=== PATIENT | male | born 1960 | race Caucasian/White ===

== ENCOUNTER 2021-11-14 15:14 | Inpatient (IN) ==
[2021-11-14] MEDS ORDERED: Ipratropium/Albuterol Neb 3 ML IH PRN (16:49)
[2021-11-14] MEDS: *HR* OxyCODONE Immed Rel 5 MG TABLET PO PRN (19:57)
[2021-11-14] MEDS: Levalbuterol Neb 1.25 MG/3 ML IH SCH (20:49)
[2021-11-15] MEDS: Acetaminophen 325 MG TABLET PO PRN ×2 (01:25→08:43)
[2021-11-15] MEDS: Levalbuterol Neb 1.25 MG/3 ML IH SCH (04:02)
[2021-11-15] MEDS: *HR* OxyCODONE Immed Rel 5 MG TABLET PO PRN ×4 (04:02→18:34)
[2021-11-15] MEDS: *HR* Enoxaparin 40 MG/0.4 ML SYRINGE SQ SCH (06:06)
[2021-11-15 06:53] LABS: Basophils % 0.3 %; Eosinophils # 0.2 K/mcL (0.0-0.6); Eosinophils % 2.5 %; Hematocrit 26.5 % (37.5-50.1); Hemoglobin 8.9 g/dL (12.9-16.9); Immature Granulocytes % 0.5 % (0-4); Lymphocytes # 1.1 K/mcL (0.6-4.6); Lymphocytes % 19.2 %; Mean Corpuscular HGB Conc 33.6 g/dL (31.6-35.5); Mean Corpuscular Hemoglobin 30.7 pg (28.0-33.3); Mean Corpuscular Volume 91.4 fL (83.0-100.0); Mean Platelet Volume 8.1 fL (9.4-12.4); Monocytes # 0.7 K/mcL (0.0-1.3); Monocytes % 11.1 %; Neutrophils # 3.9 K/mcL (1.6-8.9); Platelet Count 319 K/mcL (140-400); Red Cell Distribution Width 13.1 % (11.5-14.5); Segmented Neutrophils % 66.4 %; White Blood Count 5.9 K/mcL (4.3-11.1)
[2021-11-15 07:10] LABS: BUN/Creatinine Ratio 16 (6-26); Blood Urea Nitrogen 11 mg/dL (8-23); Calcium 9.4 mg/dL (8.6-10.3); Carbon Dioxide 31 mEq/L (23-29); Chloride 97 mEq/L (98-107); Glucose 104 mg/dL (70-105); Osmolality,Calculated 276 (280-300); Sodium 133 mEq/L (136-145); eGFR For African Americans > 60 (> 60); eGFR For Non-African Americans > 60 (> 60)
[2021-11-15] MEDS: Aspirin 325 MG TABLET PO SCH (08:43)
[2021-11-15] MEDS: Magnesium Oxide 400 MG TABLET PO SCH (08:43)
[2021-11-15] MEDS: amLODIPine 5 MG TABLET PO SCH (08:43)
[2021-11-15] MEDS: Thiamine (B-1) 100 MG TABLET PO SCH (08:43)
[2021-11-15] MEDS: Folic Acid 1 MG TABLET PO SCH (08:43)
[2021-11-16] MEDS: *HR* OxyCODONE Immed Rel 5 MG TABLET PO PRN ×5 (00:32→20:11)
[2021-11-16] MEDS: *HR* Enoxaparin 40 MG/0.4 ML SYRINGE SQ SCH (05:51)
[2021-11-16] MEDS: Thiamine (B-1) 100 MG TABLET PO SCH (08:32)
[2021-11-16] MEDS: Aspirin 325 MG TABLET PO SCH (08:32)
[2021-11-16] MEDS: amLODIPine 5 MG TABLET PO SCH (08:32)
[2021-11-16] MEDS: Folic Acid 1 MG TABLET PO SCH (08:33)
[2021-11-16] MEDS: Magnesium Oxide 400 MG TABLET PO SCH (08:33)
[2021-11-17] MEDS: *HR* OxyCODONE Immed Rel 5 MG TABLET PO PRN ×5 (00:19→20:09)
[2021-11-17] MEDS: *HR* Enoxaparin 40 MG/0.4 ML SYRINGE SQ SCH (07:01)
[2021-11-17 08:03] LABS: Hematocrit 29.6 % (37.5-50.1); Hemoglobin 9.8 g/dL (12.9-16.9); Mean Corpuscular HGB Conc 33.1 g/dL (31.6-35.5); Mean Corpuscular Hemoglobin 30.1 pg (28.0-33.3); Mean Corpuscular Volume 90.8 fL (83.0-100.0); Mean Platelet Volume 8.2 fL (9.4-12.4); Platelet Count 385 K/mcL (140-400); Red Blood Count 3.26 M/mcL (4.19-5.50); Red Cell Distribution Width 13.1 % (11.5-14.5); White Blood Count 5.8 K/mcL (4.3-11.1)
[2021-11-17 08:22] LABS: BUN/Creatinine Ratio 12 (6-26); Blood Urea Nitrogen 8 mg/dL (8-23); Calcium 9.7 mg/dL (8.6-10.3); Carbon Dioxide 29 mEq/L (23-29); Chloride 97 mEq/L (98-107); Glucose 105 mg/dL (70-105); Osmolality,Calculated 273 (280-300); Potassium 3.7 mEq/L (3.5-5.1); Sodium 132 mEq/L (136-145); eGFR For African Americans > 60 (> 60); eGFR For Non-African Americans > 60 (> 60)
[2021-11-17] MEDS: Acetaminophen 325 MG TABLET PO PRN (08:33)
[2021-11-17] MEDS: Folic Acid 1 MG TABLET PO SCH (08:33)
[2021-11-17] MEDS: Thiamine (B-1) 100 MG TABLET PO SCH (08:33)
[2021-11-17] MEDS: amLODIPine 5 MG TABLET PO SCH (08:33)
[2021-11-17] MEDS: Aspirin 325 MG TABLET PO SCH (08:33)
[2021-11-17] MEDS: Magnesium Oxide 400 MG TABLET PO SCH (08:34)
[2021-11-17] MEDS ORDERED: Isovue-370 500 ML BOTTLE IVP ONE (08:51)
[2021-11-17 11:59] LABS: Ferritin 226 ng/mL (20-250)
[2021-11-17 14:22] LABS: C-Reactive Protein 12 mg/L (Less than 10)
[2021-11-17] MEDS: Melatonin 3 MG TABLET PO PRN (20:08)
[2021-11-17] MEDS: traZODone 50 MG TABLET PO PRN (20:09)
[2021-11-18] MEDS: *HR* OxyCODONE Immed Rel 5 MG TABLET PO PRN ×4 (06:32→21:48)
[2021-11-18] MEDS: *HR* Enoxaparin 40 MG/0.4 ML SYRINGE SQ SCH (06:32)
[2021-11-18] MEDS: amLODIPine 5 MG TABLET PO SCH (09:06)
[2021-11-18] MEDS: Thiamine (B-1) 100 MG TABLET PO SCH (09:06)
[2021-11-18] MEDS: Magnesium Oxide 400 MG TABLET PO SCH (09:06)
[2021-11-18] MEDS: Aspirin 325 MG TABLET PO SCH (09:06)
[2021-11-18] MEDS: Folic Acid 1 MG TABLET PO SCH (09:06)
[2021-11-18] MEDS: traZODone 50 MG TABLET PO PRN (21:48)
[2021-11-18] MEDS: Melatonin 3 MG TABLET PO PRN (21:48)
[2021-11-19 05:21] LABS: Basophils % 0.4 %; Eosinophils # 0.2 K/mcL (0.0-0.6); Eosinophils % 3.3 %; Hematocrit 29.3 % (37.5-50.1); Hemoglobin 9.8 g/dL (12.9-16.9); Immature Granulocytes % 0.3 % (0-4); Lymphocytes # 1.2 K/mcL (0.6-4.6); Lymphocytes % 17.7 %; Mean Corpuscular HGB Conc 33.4 g/dL (31.6-35.5); Mean Corpuscular Volume 89.6 fL (83.0-100.0); Mean Platelet Volume 8.3 fL (9.4-12.4); Monocytes # 0.7 K/mcL (0.0-1.3); Monocytes % 10.4 %; Neutrophils # 4.6 K/mcL (1.6-8.9); Platelet Count 415 K/mcL (140-400); Red Blood Count 3.27 M/mcL (4.19-5.50); Segmented Neutrophils % 67.9 %; White Blood Count 6.7 K/mcL (4.3-11.1)
[2021-11-19] MEDS: *HR* OxyCODONE Immed Rel 5 MG TABLET PO PRN ×5 (05:25→22:07)
[2021-11-19] MEDS: *HR* Enoxaparin 40 MG/0.4 ML SYRINGE SQ SCH (05:25)
[2021-11-19 05:33] LABS: BUN/Creatinine Ratio 13 (6-26); Blood Urea Nitrogen 9 mg/dL (8-23); Calcium 9.7 mg/dL (8.6-10.3); Carbon Dioxide 27 mEq/L (23-29); Chloride 99 mEq/L (98-107); Glucose 117 mg/dL (70-105); Osmolality,Calculated 276 (280-300); Potassium 3.8 mEq/L (3.5-5.1); Sodium 133 mEq/L (136-145); eGFR For African Americans > 60 (> 60); eGFR For Non-African Americans > 60 (> 60)
[2021-11-19] MEDS: Folic Acid 1 MG TABLET PO SCH (08:36)
[2021-11-19] MEDS: Thiamine (B-1) 100 MG TABLET PO SCH (08:36)
[2021-11-19] MEDS: Magnesium Oxide 400 MG TABLET PO SCH (08:37)
[2021-11-19] MEDS: amLODIPine 5 MG TABLET PO SCH (08:37)
[2021-11-19] MEDS: Aspirin 325 MG TABLET PO SCH (08:37)
[2021-11-19] MEDS: Fluticasone Propionate Nasal 50 MCG/SPRAY BOTTLE NS SCH (14:46)
[2021-11-19] MEDS: Melatonin 3 MG TABLET PO PRN (22:07)
[2021-11-19] MEDS: traZODone 50 MG TABLET PO PRN (22:07)
[2021-11-20] MEDS: *HR* Enoxaparin 40 MG/0.4 ML SYRINGE SQ SCH (05:16)
[2021-11-20] MEDS: *HR* OxyCODONE Immed Rel 5 MG TABLET PO PRN ×5 (05:16→21:32)
[2021-11-20] MEDS: Folic Acid 1 MG TABLET PO SCH (08:53)
[2021-11-20] MEDS: amLODIPine 5 MG TABLET PO SCH (08:53)
[2021-11-20] MEDS: Magnesium Oxide 400 MG TABLET PO SCH (08:53)
[2021-11-20] MEDS: Thiamine (B-1) 100 MG TABLET PO SCH (08:53)
[2021-11-20] MEDS: Aspirin 325 MG TABLET PO SCH (08:53)
[2021-11-20] MEDS: Fluticasone Propionate Nasal 50 MCG/SPRAY BOTTLE NS SCH (17:37)
[2021-11-20] MEDS: Melatonin 3 MG TABLET PO PRN (21:32)
[2021-11-20] MEDS: traZODone 50 MG TABLET PO PRN (21:32)
[2021-11-21] MEDS: *HR* Enoxaparin 40 MG/0.4 ML SYRINGE SQ SCH (05:42)
[2021-11-21] MEDS: *HR* OxyCODONE Immed Rel 5 MG TABLET PO PRN ×5 (05:42→22:49)
[2021-11-21] MEDS: Thiamine (B-1) 100 MG TABLET PO SCH (09:24)
[2021-11-21] MEDS: Magnesium Oxide 400 MG TABLET PO SCH (09:24)
[2021-11-21] MEDS: amLODIPine 5 MG TABLET PO SCH (09:24)
[2021-11-21] MEDS: Aspirin 325 MG TABLET PO SCH (09:24)
[2021-11-21] MEDS: Folic Acid 1 MG TABLET PO SCH (09:24)
[2021-11-21] MEDS: Fluticasone Propionate Nasal 50 MCG/SPRAY BOTTLE NS SCH (09:24)
[2021-11-21] MEDS: Melatonin 3 MG TABLET PO PRN (22:49)
[2021-11-21] MEDS: traZODone 50 MG TABLET PO PRN (22:49)
[2021-11-22] MEDS: *HR* OxyCODONE Immed Rel 5 MG TABLET PO PRN ×5 (05:34→22:30)
[2021-11-22] MEDS: *HR* Enoxaparin 40 MG/0.4 ML SYRINGE SQ SCH (05:34)
[2021-11-22 07:20] LABS: Hematocrit 29.4 % (37.5-50.1); Hemoglobin 9.9 g/dL (12.9-16.9); Mean Corpuscular HGB Conc 33.7 g/dL (31.6-35.5); Mean Corpuscular Hemoglobin 30.4 pg (28.0-33.3); Mean Corpuscular Volume 90.2 fL (83.0-100.0); Mean Platelet Volume 8.3 fL (9.4-12.4); Platelet Count 420 K/mcL (140-400); Red Blood Count 3.26 M/mcL (4.19-5.50); Red Cell Distribution Width 12.8 % (11.5-14.5); White Blood Count 6.4 K/mcL (4.3-11.1)
[2021-11-22 07:54] LABS: BUN/Creatinine Ratio 13 (6-26); Blood Urea Nitrogen 9 mg/dL (8-23); Calcium 9.4 mg/dL (8.6-10.3); Carbon Dioxide 29 mEq/L (23-29); Chloride 98 mEq/L (98-107); Glucose 107 mg/dL (70-105); Magnesium 1.8 mg/dL (1.6-2.6); Osmolality,Calculated 275 (280-300); Potassium 3.8 mEq/L (3.5-5.1); Sodium 133 mEq/L (136-145); eGFR For African Americans > 60 (> 60); eGFR For Non-African Americans > 60 (> 60)
[2021-11-22] MEDS: Folic Acid 1 MG TABLET PO SCH (08:13)
[2021-11-22] MEDS: Thiamine (B-1) 100 MG TABLET PO SCH (08:13)
[2021-11-22] MEDS: amLODIPine 5 MG TABLET PO SCH (08:13)
[2021-11-22] MEDS: Aspirin 325 MG TABLET PO SCH (08:13)
[2021-11-22] MEDS: Magnesium Oxide 400 MG TABLET PO SCH (08:13)
[2021-11-22] MEDS: Fluticasone Propionate Nasal 50 MCG/SPRAY BOTTLE NS SCH (08:14)
[2021-11-22] MEDS: traZODone 50 MG TABLET PO PRN (22:37)
[2021-11-22] MEDS: Melatonin 3 MG TABLET PO PRN (22:37)
[2021-11-23] MEDS: *HR* OxyCODONE Immed Rel 5 MG TABLET PO PRN ×5 (05:07→22:25)
[2021-11-23] MEDS: *HR* Enoxaparin 40 MG/0.4 ML SYRINGE SQ SCH (05:07)
[2021-11-23] MEDS: Aspirin 325 MG TABLET PO SCH (08:39)
[2021-11-23] MEDS: Fluticasone Propionate Nasal 50 MCG/SPRAY BOTTLE NS SCH (08:39)
[2021-11-23] MEDS: Thiamine (B-1) 100 MG TABLET PO SCH (08:39)
[2021-11-23] MEDS: Folic Acid 1 MG TABLET PO SCH (08:40)
[2021-11-23] MEDS: amLODIPine 5 MG TABLET PO SCH (08:40)
[2021-11-23] MEDS: Magnesium Oxide 400 MG TABLET PO SCH (08:40)
[2021-11-23] MEDS ORDERED: polyethylene glycoL 3350 17 GM POWD.PACK PO PRN (11:29)
[2021-11-23] MEDS: traZODone 50 MG TABLET PO PRN (22:25)
[2021-11-23] MEDS: Melatonin 3 MG TABLET PO PRN (22:25)
[2021-11-24] MEDS: *HR* OxyCODONE Immed Rel 5 MG TABLET PO PRN ×5 (03:45→21:16)
[2021-11-24] MEDS: *HR* Enoxaparin 40 MG/0.4 ML SYRINGE SQ SCH (05:05)
[2021-11-24] MEDS: Aspirin 325 MG TABLET PO SCH (08:32)
[2021-11-24] MEDS: Folic Acid 1 MG TABLET PO SCH (08:32)
[2021-11-24] MEDS: Magnesium Oxide 400 MG TABLET PO SCH (08:32)
[2021-11-24] MEDS: Thiamine (B-1) 100 MG TABLET PO SCH (08:32)
[2021-11-24] MEDS: amLODIPine 5 MG TABLET PO SCH (08:32)
[2021-11-24] MEDS: Fluticasone Propionate Nasal 50 MCG/SPRAY BOTTLE NS SCH (08:34)
[2021-11-24] MEDS: Melatonin 3 MG TABLET PO PRN (21:15)
[2021-11-24] MEDS: traZODone 50 MG TABLET PO PRN (21:16)
[2021-11-25 05:24] LABS: Basophils % 0.5 %; Eosinophils # 0.2 K/mcL (0.0-0.6); Eosinophils % 3.4 %; Hematocrit 29.6 % (37.5-50.1); Hemoglobin 9.9 g/dL (12.9-16.9); Immature Granulocytes % 0.5 % (0-4); Lymphocytes # 1.5 K/mcL (0.6-4.6); Lymphocytes % 23.7 %; Mean Corpuscular HGB Conc 33.4 g/dL (31.6-35.5); Mean Corpuscular Hemoglobin 30.2 pg (28.0-33.3); Mean Corpuscular Volume 90.2 fL (83.0-100.0); Mean Platelet Volume 8.5 fL (9.4-12.4); Monocytes # 0.9 K/mcL (0.0-1.3); Monocytes % 13.9 %; Neutrophils # 3.6 K/mcL (1.6-8.9); Platelet Count 433 K/mcL (140-400); Red Blood Count 3.28 M/mcL (4.19-5.50); Red Cell Distribution Width 12.7 % (11.5-14.5); White Blood Count 6.3 K/mcL (4.3-11.1)
[2021-11-25 05:34] LABS: BUN/Creatinine Ratio 12 (6-26); Blood Urea Nitrogen 8 mg/dL (8-23); Calcium 9.6 mg/dL (8.6-10.3); Carbon Dioxide 29 mEq/L (23-29); Chloride 99 mEq/L (98-107); Glucose 106 mg/dL (70-105); Osmolality,Calculated 277 (280-300); Potassium 4.1 mEq/L (3.5-5.1); Sodium 134 mEq/L (136-145); eGFR For African Americans > 60 (> 60); eGFR For Non-African Americans > 60 (> 60)
[2021-11-25] MEDS: *HR* OxyCODONE Immed Rel 5 MG TABLET PO PRN ×5 (06:02→22:35)
[2021-11-25] MEDS: *HR* Enoxaparin 40 MG/0.4 ML SYRINGE SQ SCH (06:02)
[2021-11-25] MEDS: amLODIPine 5 MG TABLET PO SCH (08:03)
[2021-11-25] MEDS: Fluticasone Propionate Nasal 50 MCG/SPRAY BOTTLE NS SCH (08:03)
[2021-11-25] MEDS: Folic Acid 1 MG TABLET PO SCH (08:03)
[2021-11-25] MEDS: Thiamine (B-1) 100 MG TABLET PO SCH (08:03)
[2021-11-25] MEDS: Aspirin 325 MG TABLET PO SCH (08:03)
[2021-11-25] MEDS: Magnesium Oxide 400 MG TABLET PO SCH (08:03)
[2021-11-25] MEDS: Melatonin 3 MG TABLET PO PRN (22:34)
[2021-11-25] MEDS: traZODone 50 MG TABLET PO PRN (22:34)
[2021-11-26] MEDS: *HR* OxyCODONE Immed Rel 5 MG TABLET PO PRN ×2 (05:51→10:32)
[2021-11-26] MEDS: *HR* Enoxaparin 40 MG/0.4 ML SYRINGE SQ SCH (05:51)
[2021-11-26 09:35] VITALS: BP 131/74; PULSE 100; RESP 17; TEMP 98.9; O2SAT 98
[2021-11-26] MEDS: Folic Acid 1 MG TABLET PO SCH (10:32)
[2021-11-26] MEDS: Aspirin 325 MG TABLET PO SCH (10:32)
[2021-11-26] MEDS: Magnesium Oxide 400 MG TABLET PO SCH (10:32)
[2021-11-26] MEDS: Fluticasone Propionate Nasal 50 MCG/SPRAY BOTTLE NS SCH (10:32)
[2021-11-26] MEDS: amLODIPine 5 MG TABLET PO SCH (10:32)
[2021-11-26] MEDS: Thiamine (B-1) 100 MG TABLET PO SCH (10:32)
== END 2021-11-26 14:22 | disposition home or self-care (01) | DRG 559 ==
LOC: INPGRE 18:38
PROVIDERS: ADMIT Family Medicine; ATTEND Family Medicine